=== PATIENT | female | born 1960 | race Caucasian/White ===

== ENCOUNTER 2018-03-10 12:58 | Day surgery (SDC) | payer OTHER ==
--- OUTSIDE RECORDS SUMMARY | 2018-03-10 13:05 | XMS REPORT | Clinical Summary ---
:1960 Author Organization [facility] Address [address] [place] [address] Care Team Providers Name Role Phone Sherly Roach Janna TRANSIT BUS OPERATOR-C Primary Care Provider Allergies Active Allergy Reactions Severity Noted Date Comments Adhesive Tape-Silicones 12/25/2017 Morphine 12/25/2017 Current Medications Prescription Sig. Disp. Refills Start Date End Date Status levothyroxine Take 100 mcg 11/18/2017 Active (SYNTHROID, by mouth LEVOXYL) 100 mcg daily. tablet anastrozole Take 1 mg by 12/24/2017 Active (ARIMIDEX) 1 mg mouth daily. chemo tablet FLUoxetine (PROzac) Take 40 mg by 12/12/2017 Active 40 MG capsule mouth daily. rosuvastatin Take 20 mg by 10/10/2017 Active (CRESTOR) 20 MG mouth daily. tablet oxybutynin XL Take 5 mg by 10/07/2017 Active (DITROPAN-XL) 5 MG mouth daily. 24 hr tablet mv-mn/iron/folic Take by mouth. Active acid/herb 190 (VITAMIN D3 COMPLETE ORAL) calcium carbonate Take by mouth. Active (CALCIUM 500 ORAL) nitrofurantoin, Take one tab 14 capsule 0 02/26/2018 Active macrocrystal-monohy daily as 8 drate, (MACROBID) directed 100 MG capsule acetaminophen-codei Take 1-2 40 tablet 0 02/12/2018 ne (TYLENOL WITH tablets by 8 CODEINE #3) 300-30 mouth every 4 mg per tablet (four) hours as needed (pain) for up to 40 doses. nitrofurantoin, Take 1 capsule 4 capsule 0 02/18/2018 Discontinued macrocrystal-monohy (100 mg total) 8 drate, (MACROBID) by mouth daily 100 MG capsule for 4 doses. nitrofurantoin, Take 1 capsule 4 capsule 0 02/21/2018 Discontinued macrocrystal-monohy (100 mg total) 8 drate, (MACROBID) by mouth daily 100 MG capsule for 4 doses. Active Problems No known active problems Resolved Problems Problem Noted Date Resolved Date Uterovaginal prolapse 02/18/2018 02/28/2018 Encounters Date Type Specialty Care Team Description 03/04/2018 Telephone Urogynecology Roxanna Costello MD 02/28/2018 Office Visit Urogynecology Kevin, Post-operative state ( Primary Dx); Karey Cote NP Wound disruption, initial encounter 02/27/2018 Telephone Urogynecology Kori Rojas, KRISTIE 02/26/2018 Telephone Urogynecology Kori Rojas, CUSTOMS VERIFIER 02/26/2018 Orders Only Urogynecology Kori Rojas, CUSTOMS VERIFIER 02/26/2018 Telephone Urogynecology Kori Rojas, CUSTOMS VERIFIER 02/26/2018 Telephone Obstetrics Roxanna Schultz MD 02/24/2018 Telephone Urogynecology Roxanna Costello MD 02/21/2018 Clinical Support Urogynecology 02/21/2018 Refill Urogynecology Ivonne Peñaloza, CUSTOMS VERIFIER 02/19/2018 Telephone Obstetrics Roxanna Schultz MD 02/18/2018 Hospital Encounter Obstetrics Roxanna Schultz Gynecology MD Gene 02/18/2018 Documentation General Surgery Emery Powell RN 02/18/2018 Procedure Pass Obstetrics and Gynecology 02/18/2018 Surgery Obstetrics and Roxanna Costello UTEROSACRAL VAGINAL Gynecology MD Gene VAULT SUSPENSION, ANTERIOR / POSTERIOR REPAIR, CYSTO, W /TENSION FREE VAGINAL TAPE 02/12/2018 Pre-Admit Testing Pre-Admission Roxanna Costello Preop examination Appointment Testing MD Gene (Primary Dx) 02/12/2018 Office Visit Urogynecology Roxanna Costello Mixed stress and urge urinary incontinence (Primary Dx); MD Gene Cystocele with rectocele; Postmenopausal atrophic vaginitis 02/12/2018 Anesthesia Event Obstetrics and Davon Monzon Gynecology ZULMA Nino 12/30/2017 Telephone Obstetrics and Roxanna Costello Gynecology MD Gene 12/25/2017 Office Visit Urogynecology Roxanna Costello Cystocele with rectocele (Primary Dx); MD Gene Mixed stress and urge urinary incontinence; Postmenopausal atrophic vaginitis after 03/09/2017 Family History Medical History Relation Name Comments Cancer Brother colo rectal COPD Father Emphysema Father Crohn's disease Mother Diverticulitis Mother Heart attack Mother Heart disease Mother Heart failure Mother Obesity Mother Relation Name Status Comments Brother Alive Father Mother Sister Alive Social History Tobacco Use Types Packs/Day Years Used Date Never Smoker Smokeless Tobacco: Never Used Alcohol Use Drinks/Week oz/Week Comments Yes very little Sex Assigned at Date Recorded Not on file Last Filed Vital Signs Vital Sign Reading Time Taken Blood Pressure 147/81 02/28/2018 9:52 AM CDT Pulse 77 02/28/2018 9:52 AM CDT Temperature 36.6 C (97.8 F) 02/28/2018 9:52 AM CDT Respiratory Rate 15 02/18/2018 5:58 PM CDT Oxygen Saturation 96% 02/18/2018 5:58 PM CDT Inhaled Oxygen Concentration - - Weight 122 kg (270 lb) 02/28/2018 9:52 AM CDT Height 170.2 cm (5' 7") 02/28/2018 9:52 AM CDT Body Mass Index 42.29 02/28/2018 9:52 AM CDT Plan of Treatment Date Type Specialty Care Team Description 04/02/2018 Office Visit Urogynecology Roxanna Costello MD [address] [address] Health Maintenance Due Date Last Done Comments CERVICAL CANCER SCREENING 1981 BREAST CANCER SCREENING 2010 COLON CANCER SCREENING 2010 SHINGRIX VACCINE (#1) 2010 INFLUENZA VACCINE 02/26/2018 Implants Implanted Type Area Sawmill Relief Worker Device Expiration Model / Identifier Date Serial / Lot Device Sut Cptrng Capio - [id number] Surgical N/A: BOSTON [id number] / Implanted: Qty: 1 on 02/18/2018 by Roxanna Costello MD Implants; N/A [employer]OH[employer] / Expanders; Extenders; Surgical Wires System Contnc Rtrpbc Gynecare Tvt Exact - [id number] Urological N/A: GYNECARE 09/25/2018 TVTRL / Implanted: Qty: 1 on 02/18/2018 by Roxanna Costello MD Implants or N/A / Sets [id number] Procedures Procedure Name Priority Date/Time Associated Comments Diagnosis MEASURE POST VOID Routine 02/28/2018 12:00 Post-operative Results for this RESIDUAL AM CDT state procedure are in the results section. [place] AN ELECTIVE Routine 02/18/2018 1:24 ENDOTRACHEAL AIRWAY PM CDT Procedure Note - Concepción Nicholas CRNA - 02/18/2018 1:24 PM CDT Airway Date/Time: 02/18/2018 1:04 PM Performed by: CONCEPCIÓN NICHOLAS Authorized by: MINNA BELL Location: OR Urgency: Elective Resident/NATIONAL SALES/AA: CONCEPCIÓN NICHOLAS Performed by: resident/NATIONAL SALES/AA Preoxygenated with 100% O2: No C-spine Precautions Maintained Throughout: No Mask Ventilation: Easy mask Final Airway Type: Endotracheal airway Final Endotracheal Airway: ETT Technique Used: Video laryngoscopy Insertion Site: Oral Blade Type: Burton Laryngoscope Blade/Videolaryngoscope Blade Size: 3 ETT Size (mm): 7.0 Measured from: Lips ETT to Lips (cm): 20 Placement Verified by: CO2 detection Laryngoscopic view: Grade I - full view of glottis Rapid Sequence Induction (RSI): No Modified RSI: No Number of Attempts at Approach: 1 Atraumatic DL & intubation; teeth and lips as they were prior to DL COLPORRHAPHY, COMBINED 02/18/2018 11:00 AM CDT Cystocele with rectocele ANTEROPOSTERIOR Case Notes ADHESIVE TAPE ALLERGY , POSSIBLE EXTENDED RECOVERY Special Needs ADHESIVE TAPE ALLERGY , POSSIBLE EXTENDED RECOVERY URINALYSIS SCREEN AND Routine 02/12/2018 2:37 Preop examination Results for this MICROSCOPY, WITH REFLEX PM CDT procedure are in TO CULTURE the results section. GRAM STAIN Routine 02/12/2018 2:37 Results for this PM CDT procedure are in the results section. URINE CULTURE Routine 02/12/2018 2:37 Results for this PM CDT procedure are in the results section. CYSTOMETROGRAM COMPLEX Routine 02/12/2018 12:00 (CMG-PVES) AM CDT MEASURE POST VOID Routine 12/25/2017 12:00 Cystocele with Results for this RESIDUAL AM CDT rectocele procedure are in the results section. after 03/09/2017 Results Measure post void residual (02/28/2018)Only the most recent of2 resultswithin the time period is included. Total volume, urine 27 ml Urinalysis screen and microscopy, with reflex to culture (02/12/2018 2:37 PM) Specimen site Clean catch [facility] DEPARTMENT OF PATHOLOGY AND GENOMIC MEDICINE Color, UA Yellow [facility] DEPARTMENT OF PATHOLOGY AND GENOMIC MEDICINE Appearance, UA Clear [facility] DEPARTMENT OF PATHOLOGY AND GENOMIC MEDICINE Specific gravity, UA 1.024 1.001 - 1.035 [facility] DEPARTMENT OF PATHOLOGY AND GENOMIC MEDICINE pH, UA 6.0 5.0 - 8.5 [facility] DEPARTMENT OF PATHOLOGY AND GENOMIC MEDICINE Protein, UA 2+ (A) Negative [facility] DEPARTMENT OF PATHOLOGY AND GENOMIC MEDICINE Glucose, UA Negative Negative [facility] DEPARTMENT OF PATHOLOGY AND GENOMIC MEDICINE Ketones, UA Trace (A) Negative [facility] DEPARTMENT OF PATHOLOGY AND GENOMIC MEDICINE Bilirubin, UA Negative Negative [facility] DEPARTMENT OF PATHOLOGY AND GENOMIC MEDICINE Blood, UA Moderate (A) Negative [facility] DEPARTMENT OF PATHOLOGY AND GENOMIC MEDICINE Nitrite, UA Negative Negative [facility] DEPARTMENT OF PATHOLOGY AND GENOMIC MEDICINE Urobilinogen, UA 2.0 (A) <2.0 [facility] DEPARTMENT OF PATHOLOGY AND GENOMIC MEDICINE Leukocyte esterase, UA Trace (A) Negative [facility] DEPARTMENT OF PATHOLOGY AND GENOMIC MEDICINE Epithelial cells, UA 2 /HPF [facility] DEPARTMENT OF PATHOLOGY AND GENOMIC MEDICINE Round epithelial cells, UA 2 (H) 0 - 1 /HPF [facility] DEPARTMENT OF PATHOLOGY AND GENOMIC MEDICINE WBC, UA 2 0 - 4 /HPF [facility] DEPARTMENT OF PATHOLOGY AND GENOMIC MEDICINE RBC, UA 52 (H) 0 - 5 /HPF [facility] DEPARTMENT OF PATHOLOGY AND GENOMIC MEDICINE Bacteria, UA Few None seen [facility] DEPARTMENT OF PATHOLOGY AND GENOMIC MEDICINE Yeast, UA None seen [facility] DEPARTMENT OF PATHOLOGY AND GENOMIC MEDICINE Yeast with pseudohyphae, UA None seen [facility] DEPARTMENT OF PATHOLOGY AND GENOMIC MEDICINE Hyaline casts, UA 1 /LPF [facility] DEPARTMENT OF PATHOLOGY AND GENOMIC MEDICINE Specimen Urine Performing Organization Address City/State/Zipcode Phone Number [facility] DEPARTMENT OF PATHOLOGY AND [address] [place] [address] GENOMIC MEDICINE Gram stain (02/12/2018 2:37 PM) Gram stain result Few WBC's [facility] DEPARTMENT OF PATHOLOGY No organisms seen AND GENOMIC MEDICINE Comment: Specimen Information Specimen Source: Urine Specimen Site: Clean catch Specimen Urine Performing Organization Address [facility] [place] Phone Number [facility] DEPARTMENT OF PATHOLOGY AND [address] [place] [phone] GENOMIC MEDICINE Urine culture (02/12/2018 2:37 PM) Urine culture isolate Mixed Gram positive michelle [facility] DEPARTMENT OF 10-3 cfu/ml PATHOLOGY AND GENOMIC (A) MEDICINE Comment: Specimen Information Specimen Source: Urine Specimen Site: Clean catch Urine culture isolate Gram negative rods [facility] DEPARTMENT OF <10-1 cfu/ml PATHOLOGY AND GENOMIC (A) MEDICINE Specimen Urine Performing Organization Address [facility] [place] Phone Number [facility] DEPARTMENT OF PATHOLOGY AND [address] [place] [phone] [facility] MEDICINE Cystometrogram complex (CMG-pVes) (02/12/2018) Narrative Performed At after 03/09/2017 Insurance Payer Benefit Plan / Group Subscriber ID Type Phone Address AETNA AETNA HMO,POS,EPO, MC/EC xxxxxxxxxx HMO Home: [address] [place] [phone] [place] [address]
[2018-03-10] MEDS ORDERED: LIDOCAINE 2% MPF 5 ML VIAL ONE (13:09)
[2018-03-10] MEDS ORDERED: NA CHLORIDE 0.9% 500 ML ONE (13:09)
[2018-03-10] MEDS ORDERED: TETRACAINE HCL 0.5% 2ML OPTH ONE (13:10)
[2018-03-10] MEDS ORDERED: BUPIVACAINE 0.25% PF 10 ML VIAL ONE (13:10)
[2018-03-10] MEDS ORDERED: BALANCED SALT IRRIG PLAIN 500 ML BTL IRR ONE (13:11)
[2018-03-10] MEDS ORDERED: NS 0.9% VIAL 10 ML ONE (13:11)
[2018-03-10] MEDS ORDERED: MOXIFLOXACIN HCL 10 DROPS/ML **OR USE OPTH ONE (13:12)
[2018-03-10] MEDS: PHENYLEPHRINE 10% OPTH 5ML ONE ×3 (13:35→13:45)
[2018-03-10] MEDS: CYCLOPENTOLATE 1% OPTH 2 ML ONE ×3 (13:35→13:45)
[2018-03-10] MEDS ORDERED: EPINEPHRINE/PF 1 MG/ML AMP ONE (13:58)
[2018-03-10] MEDS ORDERED: LIDOCAINE 1% MPF 5 ML VIAL ONE ×2 (14:22→14:23)
[2018-03-10] MEDS ORDERED: PROPOFOL 200 MG/20 ML VIAL IV ONE (14:22)
[2018-03-10] MEDS ORDERED: TRYPAN BLUE 0.5 ML SYR OPTH ONE (14:49)
[2018-03-10] MEDS: DUOVISC 1 KIT OPTH ONE ×2 (14:49→15:13)
[2018-03-10] MEDS ORDERED: LIDOCAINE 1% MPF 2 ML AMPULE ONE (14:59)
--- NOTE | 2018-03-10 15:33 | P.BOP ---
Preoperative diagnosis: Nuclear sclerotic cataract OD Postoperative diagnosis: Same Primary procedure: Phacoemulsification with IOL OD Estimated blood loss: None Anesthesia: Local (Subtenon's infusion with anesthesia for cataract surgery) Complications: None Implants: [id number] +21.5 Transferred to: Other (Day surgery) Condition: Good
--- NOTE | 2018-03-11 01:48 | OP ---
Date of Procedure: 03/10/2018 Surgeon: Maria Guadalupe Irizarry MD Anesthesiologist: 1. Jabier Jo CRNA. 2. Seymour Estevez M.D. Preoperative Diagnosis: Nuclear sclerotic cataract, OD (right eye). Operation Performed: Phacoemulsification with intraocular lens implant, OD (right eye). Anesthesia: Per cataract surgery. Complications: None. Description Of Procedure: In day surgery, the patient was prepped with Betadine and draped. A conju nctival incision was made in the inferior nasal quadrant with Radha scissors. A sub-Tenon block c onsisting of a 1:1 mixture of 2% Xylocaine and 0.25% bupivacaine was placed through the conjunctival incision with a blunt cannula. A Honan balloon was placed over the eye and the patient was transferr ed to the operating room. In the operating room the patient was prepped and draped in the usual sterile fashion for ophthalmic surgery. A lid speculum was placed in the OD. Two paracentesis sites were made superiorly and infer iorly in the limbal cornea. Viscoat was placed in the anterior chamber and a crescent blade was used to make a corneal groove and tunnel, and a keratome was used to enter the anterior chamber. Provisc was placed in the anterior chamber and a 360 degree capsulotomy was performed with a cystitome. The lens was hydrodissected with BSS and rotated freely. The lens was removed with a stop and chop tech nique. A 11.29 phaco CDE was used to remove the lens. Residual cortex was removed with the irrigati on and aspiration. Provisc was placed in the capsular bag. A ZCB00 +21.5 lens was placed in the cap sular bag without complications. Irrigation and aspiration was used to remove residual viscoelastic. The paracentesis sites were hydrated with BSS. The wound and paracentesis sites were inspected and found to be watertight. Vigamox 0.07 cc was placed intracamerally at the end of the procedure. The eye was irrigated with balanced salt solution. The eye was patched with a soft cotton patch and Robert metal shield. The patient was returned to day surgery in good condition. Comments: The posterior synechiae, superonasal, was lysed with Viscoat. Viscoat was reapplied over the peripheral iridotomy multiple times during surgery to ensure that no vitreous came forward throug h the large iridotomy site. The lens was hydrodelineated and the capsulotomy incorporated the area o f posterior synechiae. Discharge Instructions: Ms. Augustin is discharged to home in good condition and is to follow up [facility] Dr. Irizarry in the morning. KIRIT/ARJUN Voice ID: [id number] Report ID: [id number]
== END 2018-03-10 16:05 | disposition home or self-care (01) ==
LOC: OR 12:58
PROVIDERS: ATTEND Ophthalmology Retina Specialist
PROC: 08RJ3JZ Replacement of Right Lens with Synthetic Substitute, Percutaneous Approach (ICD-10-PCS; principal; 2018-03-10 12:30)
DX: H25.11 Age-related nuclear cataract, right eye (principal); Z98.84 Bariatric surgery status; E03.9 Hypothyroidism, unspecified; K21.9 Gastro-esophageal reflux disease without esophagitis
CPT/HCPCS: J0171; J2001